=== PATIENT | female | born 1990 | race Hispanic/Latino ===

== ENCOUNTER 2023-12-18 19:15 | Emergency (ER) | payer SELFPAY ==
[~2023-12-18] VITALS: Ht 162.6 cm; Wt 48.5 kg
[2023-12-18 19:43] VITALS: TEMP 98.7
[2023-12-18 20:10] VITALS: PULSE 99; RESP 17
[2023-12-18 20:32] LABS: BILIRUBIN,URINE NEGATIVE (NEGATIVE); CLARITY,URINE SL CLOUDY (CLEAR); COLOR,URINE YELLOW (YELLOW); GLUCOSE, URINE NEGATIVE (NEGATIVE); KETONES,URINE NEGATIVE (NEGATIVE); LEUKOCYTE ESTERASE ,URINE SMALL (NEGATIVE); NITRITE,URINE NEGATIVE (NEGATIVE); PH,URINE 7.5 (5 - 7); PREGNANCY TEST, URINE NEGATIVE (NEGATIVE); PROTEIN,URINE DIPSTICK NEGATIVE (NEGATIVE); URINE UROBILINOGEN 0.2 mg/dL (0.2 - 1)
[2023-12-18 20:43] LABS: AMORPHOUS SEDIMENT,URINE MODERATE (FEW); BACTERIA,URINE MODERATE /HPF; EPITHELIAL CELLS,URINE MODERATE /LPF
[2023-12-18] MEDS ORDERED: KETOROLAC TROMETHAMINE 60 MG/2 ML VIAL ONE (20:54)
[2023-12-18] MEDS: KETOROLAC TROMETHAMINE 60 MG/2 ML VIAL IM ONE (21:08)
[2023-12-18] MEDS ORDERED: CYCLOBENZAPRINE5 MG PO (21:46)
[2023-12-18] MEDS ORDERED: MEDROL4 M2 PO (21:46)
[2023-12-18 21:57] VITALS: BP 110/87; PULSE 91; RESP 17; TEMP 98.6; O2SAT 99
== END 2023-12-18 22:02 | disposition home or self-care (01) ==
LOC: ER 20:06
DX: S76.012A Strain of muscle, fascia and tendon of left hip, initial encounter (principal); S39.011A Strain of muscle, fascia and tendon of abdomen, initial encounter; R26.2 Difficulty in walking, not elsewhere classified; X50.9XXA Other and unspecified overexertion or strenuous movements or postures, initial encounter; Y92.89 Other specified places as the place of occurrence of the external cause
CPT/HCPCS: 73502; 81001; 81025; 99283; J1885